=== PATIENT | male | born 1970 | race Caucasian/White ===

== ENCOUNTER 2020-06-07 04:11 | Emergency (ER) | payer SELFPAY ==
[2020-06-07] MEDS ORDERED: BABY ASPIRIN 81 MG CHEW PO ONE (04:27)
[2020-06-07] MEDS ORDERED: DUONEB 0.5-3 MG/3 ml Neb IH ONE ×2 (04:29→04:37)
[2020-06-07] MEDS ORDERED: CARDIZEM DRIP 100 MG/100 ML D5W 100 ML IV PRN (04:30)
[2020-06-07] MEDS ORDERED: Sodium Chloride 0.9% 1000 ML 1,000 ML IV SCH (04:30)
[2020-06-07] MEDS ORDERED: Cardizem IV 50 MG/10 ML IV ONE ×4 (04:30→07:29)
--- NOTE | 2020-06-07 04:36 | ERPHSYRPT ---
- History of Present Illness Time Seen by Provider: 06/07/20 04:21 Source: patient Exam Limitations: no limitations Patient Subjective Stated Complaint: "I cant catch my breath since saturday night." Triage Nursing Assessment: . Physician History: 50 years old male with a history of hypertension, congestive heart failure, tobacco abuse presented in the ER with chief complaint of gradually worsening shortness of breath initially with activity and now at resting for the last 2 days. Patient reports shallow breathing with tightness all around chest and palpitations with feeling as if his heart is fluttering. Denies any history of arrhythmias. He also reports having sinus congestion and has been taking multiple [id number] sinus meds. Denies fever or chills. Denies any increased swelling in lower extremities. Timing/Duration: day(s) (2) Activities at Onset: activity Severity of Dyspnea-Max: moderate Severity of Dyspnea-Current: moderate Modifying Factors: Improves With: activity, exertion, rest Associated Symptoms: constant, chest pain/discomfort, heaviness, tightness, No fever Allergies/Adverse Reactions: lisinopril Allergy (Severe, Verified 06/07/20 04:14) Home Medications: Amlodipine Besylate 5 mg [Norvasc 5 mg] 0 mg PO DAILY 10/01/16 [History] Furosemide 20 mg [Lasix 20 mg] 0 mg PO DAILY 10/01/16 [History] dilTIAZem HCL [Diltiazem HCl] 1 tab PO BID 06/07/20 [History] Hx Influenza Vaccination/Date Given: No Travel Risk - International Travel Have you traveled outside of the country in past 3 weeks: No - Coronavirus Screening Are you exhibiting any of the following symptoms?: Yes Symptoms: Shortness of Breath Close contact with a COVID-19 positive Pt in past 14-21 Days: No - Review of Systems Constitutional: No Symptoms Eyes: No Symptoms Ears, Nose, & Throat: Nose Congestion, Sinus Drainage Respiratory: Dyspnea, Dyspnea on Exertion (CAPONE), Wheezing Cardiac: Chest Pain, Palpitations Abdominal/Gastrointestinal: No Symptoms Genitourinary Symptoms: No Symptoms Musculoskeletal: No Symptoms Skin: No Symptoms Neurological: No Symptoms Psychological: No Symptoms Hematologic/Lymphatic: No Symptoms Immunological/Allergic: No Symptoms - Past Medical History Pertinent Past Medical History: Yes Neurological History: Seizures ENT History: No Pertinent History Cardiac History: Congestive Heart Failure, Hypertension Respiratory History: COPD Endocrine Medical History: No Pertinent History Musculoskeletal History: Arthritis GI Medical History: Other History: No Pertinent History Psycho-Social History: Panic Disorder Male Reproductive Disorders: No Pertinent History Other Medical History: 10-15 years ago 1 seizure- unknown cause. infrequent panic attacks. blood in stool. hx CHF years ago - Past Surgical History Past Surgical History: No - Social History Smoking Status: Current every day smoker How long have you smoked: 30years Exposure to second hand smoke: Yes Drug Use: none Patient Lives Alone: Yes - Nursing Vital Signs Nursing Vital Signs: Initial Vital Signs Temperature 98 F 06/07/20 04:11 Pulse Rate 154 H 06/07/20 04:11 Respiratory Rate 22 06/07/20 04:11 Blood Pressure 130/102 06/07/20 04:11 O2 Sat by Pulse Oximetry 94 L 06/07/20 04:11 Pain Scale Pain Intensity 0 - Physical Exam General Appearance: no apparent distress Eye Exam: PERRL/EOMI, eyes nml inspection Ears, Nose, Throat Exam: hearing grossly normal, normal ENT inspection Neck Exam: normal inspection, non-tender, supple, full range of motion Respiratory Exam: wheezing, No chest tenderness Cardiovascular/Chest Exam: tachycardia, other (Irregularly irregular) Abdominal/Gastrointestinal Exam: soft Extremity Exam: non-tender, normal range of motion, normal inspection Neurologic Exam: alert, oriented x 3, cooperative Skin Exam: normal color SpO2 Interpretation: normal SpO2: 94 O2 Delivery: Room Air - Course Nursing assessment & vital signs reviewed: Yes EKG Interpreted by Me: RATE (139), A-fib (with RVR), NORMAL AXIS, NORMAL INTERVALS, Other (Mild ST depression in lateral leads. Nonspecific T wave changes) Ordered Tests: Active Orders 24 hr Category Date Time Status Electrician Second STAT Care 06/07/20 04:28 Active EKG-ER Only STAT Care 06/07/20 04:27 Active IV Insertion STAT Care 06/07/20 04:27 Active Oxygen-ED Only Nasal Cannula 2 lpm Care 06/07/20 04:27 Active CHEST 1 VIEW (PORTABLE) Stat Exams 06/07/20 04:27 Taken CHEST WITH CONTRAST [CT] Stat Exams 06/07/20 05:13 Taken CBC W DIFF Stat Lab 06/07/20 04:40 Completed CMP Stat Lab 06/07/20 04:40 Completed D-DIMER QUANTITATIVE Stat Lab 06/07/20 04:40 Completed MAGNESIUM Stat Lab 06/07/20 04:40 Completed NT PRO BNP Stat Lab 06/07/20 04:40 Completed PROTIME WITH INR Stat Lab 06/07/20 04:40 Completed PTT Stat Lab 06/07/20 04:40 Completed TROPONIN Q3H Lab 06/07/20 04:40 Completed TROPONIN Q3H Lab 06/07/20 07:30 Ordered TROPONIN Q3H Lab 06/07/20 10:30 Ordered TROPONIN Q3H Lab 06/07/20 13:30 Ordered TROPONIN Q3H Lab 06/07/20 16:30 Ordered UA W/RFX UR CULTURE Stat Lab 06/07/20 06:29 Ordered Respiratory Therapy Assessment DAILY RT 06/07/20 04:42 Active Medication Summary Generic Name Dose Route Start Last Admin Trade Name Freq PRN Reason Stop Dose Admin Sodium Chloride 1,000 mls @ 125 mls/hr 06/07/20 04:30 06/07/20 04:47 Sodium Chloride 0.9% 1000 Ml IV 07/07/20 04:29 125 mls/hr .Q8H JASMYN Administration Diltiazem HCl 100 mls @ 5 mls/hr 06/07/20 04:30 06/07/20 05:23 Cardizem Drip 100 Mg/100 Ml D5w IV 07/07/20 04:29 15 mg/hr .Q20H PRN 15 mls/hr HEART RATE/ A-FIB Titration Protocol 5 MG/HR Discontinued Medications Generic Name Dose Route Start Last Admin Trade Name Freq PRN Reason Stop Dose Admin Albuterol/Ipratropium 3 ml 06/07/20 04:29 06/07/20 04:38 Duoneb 0.5-3 Mg/3 Ml Neb IH 06/07/20 04:30 3 ml STAT ONE Administration Albuterol/Ipratropium Confirm 06/07/20 04:37 Duoneb 0.5-3 Mg/3 Ml Neb Administered 06/07/20 04:38 Dose 3 ml IH .STK-MED ONE Aspirin 324 mg 06/07/20 04:27 06/07/20 04:47 Baby Aspirin 81 Mg Chew PO 06/07/20 04:28 324 mg STAT ONE Administration Aspirin Confirm 06/07/20 04:42 Baby Aspirin 81 Mg Chew Administered 06/07/20 04:43 Dose 81 mg .ROUTE .STK-MED ONE Diltiazem HCl 15 mg 06/07/20 04:30 06/07/20 04:46 Cardizem Iv 50 Mg/10 Ml IV 06/07/20 04:31 15 mg STAT ONE Administration Diltiazem HCl Confirm 06/07/20 04:43 Cardizem Iv 50 Mg/10 Ml Administered 06/07/20 04:44 Dose 50 mg IV .STK-MED ONE Furosemide 40 mg 06/07/20 06:31 06/07/20 06:33 Lasix 40 Mg/4 Ml IV 06/07/20 06:32 40 mg STAT ONE Administration Furosemide Confirm 06/07/20 06:32 Lasix 40 Mg/4 Ml Administered 06/07/20 06:33 Dose 40 mg .ROUTE .STK-MED ONE Lorazepam 1 mg 06/07/20 05:48 06/07/20 05:54 Ativan 2 Mg/1 Ml Vial IV 06/07/20 05:49 1 mg STAT ONE Administration Lorazepam Confirm 06/07/20 05:49 Ativan 2 Mg/1 Ml Vial Administered 06/07/20 05:50 Dose 2 mg .ROUTE .STK-MED ONE Lab/Rad Data: Laboratory Result Diagrams 06/07/20 04:40 06/07/20 04:40 Laboratory Results 06/07/20 06/07/20 06/07/20 Range/Units 04:40 04:40 04:40 WBC (4.0-10.5) K/mm3 RBC (4.1-5.6) M/mm3 Hgb (12.5-18.0) gm/dl Hct (42-50) % MCV (78-100) fl MCH (26-32) pg MCHC (32-36) g/dl RDW (11.5-14.0) % Plt Count (150-450) K/mm3 MPV (7.5-11.0) fl Gran % (36.0-66.0) % Eos # (Auto) (0-0.5) Absolute Lymphs (auto) (1.0-4.6) Absolute Monos (auto) (0.0-1.3) Lymphocytes % (24.0-44.0) % Monocytes % (0.0-12.0) % Eosinophils % (0.00-5.0) % Basophils % (0.0-0.4) % Absolute Granulocytes (1.4-6.9) Basophils # (0-0.4) PT 14.0 H (8.83-12.87) SECONDS INR 1.24 (0.8-3.0) APTT 37.8 H (24.1-36.1) SECONDS D-Dimer 1362 H* (215-500) ng/mL Sodium 135 L (137-145) mmol/L Potassium 3.4 L (3.5-5.1) mmol/L Chloride 105 (98-107) mmol/L Carbon Dioxide 24 (22-30) mmol/L Anion Gap 10.2 (5-15) MEQ/L BUN 12 (9-20) mg/dL Creatinine 0.76 (0.66-1.25) mg/dL Estimated GFR > 60.0 ML/MIN Glucose 108 H (74-106) mg/dL Calcium 9.3 (8.4-10.2) mg/dL Magnesium 2.0 (1.6-2.3) mg/dL Total Bilirubin 0.70 (0.2-1.3) mg/dL AST 23 (17-59) U/L ALT 43 (0-50) U/L Alkaline Phosphatase 57 (38-126) U/L Troponin I < 0.012 (0.000-0.034) ng/mL NT-Pro-B Natriuret Pep 1160 H (0-900) pg/mL Serum Total Protein 7.0 (6.3-8.2) g/dL Albumin 4.0 (3.5-5.0) g/dL 06/07/20 Range/Units 04:40 WBC 12.6 H (4.0-10.5) K/mm3 RBC 4.71 (4.1-5.6) M/mm3 Hgb 13.3 (12.5-18.0) gm/dl Hct 40.1 L (42-50) % MCV 85.1 (78-100) fl MCH 28.2 (26-32) pg MCHC 33.2 (32-36) g/dl RDW 14.4 H (11.5-14.0) % Plt Count 220 (150-450) K/mm3 MPV 10.7 (7.5-11.0) fl Gran % 74.1 H (36.0-66.0) % Eos # (Auto) 0.41 (0-0.5) Absolute Lymphs (auto) 1.85 (1.0-4.6) Absolute Monos (auto) 0.99 (0.0-1.3) Lymphocytes % 14.7 L (24.0-44.0) % Monocytes % 7.8 (0.0-12.0) % Eosinophils % 3.2 (0.00-5.0) % Basophils % 0.2 (0.0-0.4) % Absolute Granulocytes 9.34 H (1.4-6.9) Basophils # 0.03 (0-0.4) PT (8.83-12.87) SECONDS INR (0.8-3.0) APTT (24.1-36.1) SECONDS D-Dimer (215-500) ng/mL Sodium (137-145) mmol/L Potassium (3.5-5.1) mmol/L Chloride (98-107) mmol/L Carbon Dioxide (22-30) mmol/L Anion Gap (5-15) MEQ/L BUN (9-20) mg/dL Creatinine (0.66-1.25) mg/dL Estimated GFR ML/MIN Glucose (74-106) mg/dL Calcium (8.4-10.2) mg/dL Magnesium (1.6-2.3) mg/dL Total Bilirubin (0.2-1.3) mg/dL AST (17-59) U/L ALT (0-50) U/L Alkaline Phosphatase (38-126) U/L Troponin I (0.000-0.034) ng/mL NT-Pro-B Natriuret Pep (0-900) pg/mL Serum Total Protein (6.3-8.2) g/dL Albumin (3.5-5.0) g/dL - Progress Progress: re-examined Air Movement: good Progress Note: 06/07/20 06:39 50 years old is evaluated for shortness of breath. Patient was in A. fib with RVR on presentation with rate bouncing between 1 40-1 65. He is given a Ca rdizem bolus followed by drip and his heart rate currently is in 120s. Patient sounded congested and is given a dose of Lasix as well. Chest x-ray did not show any acute infiltrative process but has mild congestion. Patient has not been taking any diuretics. He has negative initial troponin and BNP of 1160. Has elevated d-dimer and CTA chest is obtained with pending results. On reevaluation his shortness of breath is better. I would give him a dose of Lovenox for his new onset A. fib with RVR regardless of CTA results. Since patient has new onset A. fib with RVR, needs cardiology evaluation, patient wants to go to [place]. Discussed with Dr. Bella hospitalist and patient is accepted for transfer. She also recommended giving one-time dose of Lopressor 5 mg to see if it helps the heart rate. Blood Culture(s) Obtained: No Antibiotics given: No Discussed with DrHernan: Other Counseled pt/family regarding: lab results, diagnosis, rad results, smoking cessation - Departure Departure Disposition: Transfer Clinical Impression: Atrial fibrillation with rapid ventricular response Acute exacerbation of CHF (congestive heart failure) Qualifiers: Heart failure type: unspecified Qualified Code(s): I50.9 - Heart failure, unspecified Condition: Fair Critical Care Time: Yes Critical Care Time(excluding separately billable procedures): Critical 30-74 mins Instructions: Heart Failure
[2020-06-07] MEDS ORDERED: BABY ASPIRIN 81 MG CHEW ONE (04:42)
[2020-06-07] MEDS ORDERED: CARDIZEM DRIP 100 MG/100 ML D5W 100 ML IV ONE (04:43)
[2020-06-07] MEDS ORDERED: Sodium Chloride 0.9% 1000 ML 1,000 ML ONE (04:43)
[2020-06-07 04:45] LABS: Absolute Neutrophil Ct (ANC) 9.34 (1.4-6.9); BASOPHIL % 0.2 % (0.0-0.4); Basophil (Absolute #) 0.03 (0-0.4); Eosinophil % 3.2 % (0.00-5.0); Eosinophil (Absolute #) 0.41 (0-0.5); Hematocrit 40.1 % (42-50); Hemoglobin 13.3 gm/dl (12.5-18.0); Lymphocyte (Absolute #) 1.85 (1.0-4.6); Lymphocytes % 14.7 % (24.0-44.0); Mean Cell Volume 85.1 fl (78-100); Mean Corpuscular Hemoglobin 28.2 pg (26-32); Mean Corpuscular Hgb Concent. 33.2 g/dl (32-36); Mean Platelet Volume 10.7 fl (7.5-11.0); Monocyte (Absolute #) 0.99 (0.0-1.3); Monocytes % 7.8 % (0.0-12.0); Neutrophil % 74.1 % (36.0-66.0); Platelet Count 220 K/mm3 (150-450); Red Blood Count 4.71 M/mm3 (4.1-5.6); Red Cell Distribution Width 14.4 % (11.5-14.0); White Blood Count 12.6 K/mm3 (4.0-10.5)
[2020-06-07 04:55] LABS: INR 1.24 (0.8-3.0)
[2020-06-07 04:57] LABS: PTT 37.8 SECONDS (24.1-36.1)
[2020-06-07 05:08] LABS: ALKALINE PHOSPHATASE 57 U/L (38-126); ANION GAP 10.2 MEQ/L (5-15); BLOOD UREA NITROGEN 12 mg/dL (9-20); CHLORIDE 105 mmol/L (98-107); Calcium 9.3 mg/dL (8.4-10.2); Carbon Dioxide 24 mmol/L (22-30); Creatinine 1 0.76 mg/dL (0.66-1.25); Glucose 108 mg/dL (74-106); NT PRO BNP 1160 pg/mL (0-900); Potassium 3.4 mmol/L (3.5-5.1); SGOT/AST 23 U/L (17-59); SGPT/ALT 43 U/L (0-50); SODIUM 135 mmol/L (137-145)
[2020-06-07] MEDS ORDERED: Ativan 2 MG/1 ML VIAL IV ONE (05:48)
[2020-06-07] MEDS ORDERED: Ativan 2 MG/1 ML VIAL ONE (05:49)
[2020-06-07] MEDS ORDERED: Lasix 40 MG/4 ML IV ONE (06:31)
[2020-06-07] MEDS ORDERED: Lasix 40 MG/4 ML ONE (06:32)
[2020-06-07] MEDS ORDERED: LOPRESSOR 5 MG/5 ML INJECTION IV ONE ×2 (06:47→07:02)
[2020-06-07] MEDS ORDERED: ENOXAPARIN SODIUM SQ ONE (06:55)
[2020-06-07 07:16] VITALS: BP 130/91; PULSE 128; O2SAT 90
[2020-06-07 07:56] LABS: Appearance CLEAR (CLEAR); Bilirubin NEGATIVE (NEGATIVE); Blood NEGATIVE Ery/ul (0-5); Glucose NEGATIVE (NEGATIVE); Ketones TRACE (NEGATIVE); Leukocyte Esterase TRACE (NEGATIVE); Mucus SLIGHT /HPF (NEGATIVE); Nitrite NEGATIVE (NEGATIVE); Protein,Urine Dip NEGATIVE (Negative); Specific Gravity 1.023 (1.005-1.025); Urobilinogen NEGATIVE mg/dL (0-1)
[2020-06-07 07:57] LABS: Bacteria RARE /HPF (NEGATIVE)
--- NOTE | 2020-06-07 09:26 | XRAY ---
Exam: AP upright portable chest film from 06/07/2020. Comparison: Two-view chest from 04/09/2007. Indication: Shortness of breath in 50-year-old male. Findings: The heart size is borderline increased with a prominent left ventricular contour. The lungs are adequately inflated. Some scattered mildly increased lung markings are seen at both lung bases, which may be due to linear atelectasis, mild bibasilar interstitial lung edema, or less likely, fibrotic scarring. The upper lung montes appear relatively clear. No significant central pulmonary vascular congestion is seen. No confluent airspace infiltrate, pneumothorax, or pleural effusion is seen. I suspect some arthritic changes within the left shoulder. No acute osseous process is seen. Impression: 1. Borderline cardiomegaly with mild left ventricular prominence. In addition, there are mild increased bibasilar linear lung markings which likely represent plate atelectasis or interstitial lung edema. Correlate clinically. 2. No confluent air space infiltrates are seen.
--- NOTE | 2020-06-08 02:55 | XRAY ---
Exam: CT of the chest with IV contrast from 06/07/2020. Total DLP: 1561.66 mGy-cm Comparison: AP upright portable chest film from 06/07/2020. Indication: 50-year-old male with shortness of breath, elevated d-dimer, dyspnea on exertion, elevated white blood cell count, atrial fibrillation, hypertension, chest pain. Technique: Post-IV contrast axial images were obtained through the chest during automated IV injection of 80 cc of Isovue-370 contrast material using the PE protocol. Reconstructed coronal and sagittal images were created and reviewed. Findings: The pulmonary arteries enhance well and reveal no filling defects to suggest clot/emboli. The thoracic aorta appears of normal diameter revealing no aneurysm or thoracic aortic dissection. The heart size is normal. There is a tiny amount of pericardial fluid anteriorly on axial image #233, likely physiologic. Some atherosclerotic vascular calcification is seen within both coronary arteries. The ascending aorta is borderline enlarged measuring 4.0 cm in greatest AP dimension and width. I note some scattered small to medium sized mediastinal and perihilar lymph nodes which are likely reactive or postinflammatory. Some moderate sized reactive lymph nodes are also seen within both axilla. No definite pathological lymphadenopathy is seen. The peripheral lung montes reveals some subtle groundglass opacities which are likely due to mild airspace edema. I also note minimal bilateral posterior pleural effusions. Some linear scarring/atelectasis is seen at both lung bases. The upper abdomen reveals an unremarkable appearance of the adrenal glands. No other definite abnormality is seen within the visualized upper abdomen. The the superior aspect of the gallbladder may be partially seen on the last axial image. If so, I cannot cholelithiasis. Consider further evaluation with a gallbladder ultrasound. The skeleton reveals no acute fracture or aggressive bone lesion. Mild spondylosis is seen within the visualized spine. There is also a mild dorsal kyphosis present. Impression: 1. I see no evidence of pulmonary emboli or thoracic aortic dissection. However, the ascending aorta is borderline enlarged measuring 4 cm in diameter. 2. Mild right and left coronary artery vascular calcification is seen. 3. Small to medium-sized mediastinal and perihilar lymph nodes are seen which are likely reactive or postinflammatory in nature. 4. I believe there are some subtle bilateral groundglass lung opacities with small bilateral posterior pleural effusions. Consider mild CHF with early pulmonary edema. 5. No other acute cardiopulmonary disease is seen. I also note some minimal linear scarring/atelectasis at both lung bases. 6. Questionable cholelithiasis on the most inferior axial image. Consider further evaluation with a gallbladder ultrasound.
== END 2020-06-07 08:20 | disposition short-term general hospital (02) ==
LOC: ED 04:11
DX: I48.91 Unspecified atrial fibrillation (principal); I50.9 Heart failure, unspecified; I10 Essential (primary) hypertension; J44.9 Chronic obstructive pulmonary disease, unspecified; Z72.0 Tobacco use; R07.89 Other chest pain
CPT/HCPCS: 36000; 36415; 71045; 71260; 80053; 81001; 83735; 83880; 84484; 85025; 85379; 85610; 85730; 93005; 93041; 94640; 96365; 96372; 96374; 96375; 96376; 99285; 99291; J1650; J1940; J2060; A9270-GY